=== PATIENT | female | born 1990 | race Caucasian/White ===

== ENCOUNTER 2020-10-31 20:35 | Emergency (ER) | payer OTHER, BC, SELFPAY ==
[2020-10-31 20:36] VITALS: BP 158/102; PULSE 98; RESP 15; TEMP 36.3; O2SAT 98; BMI 51.5
--- NOTE | 2020-10-31 22:40 | CT_ITS ---
STUDY: CT BRAIN WITHOUT CONTRAST REASON FOR EXAM: Female, 30 years old. Injury/Pain RADIATION DOSAGE (If Supplied By Facility): CTDIvol = ( 44.99 ) mGy, DLP = ( 745.49 ) mGycm TECHNIQUE: Transaxial CT imaging of the brain was performed without administration of intravenous contrast material. Individualized dose optimization techniques were used for this CT. COMPARISON: No relevant priors. FINDINGS: Left frontal scalp hematoma Normal calvarium. Normal size ventricles and extra-axial spaces for the patient''s age. Normal white matter tracts of the cerebral hemispheres. Normal basal ganglia and thalami. Normal brainstem. Normal cerebellum. There is no intracranial hemorrhage. There are no findings of an acute ischemic infarction. Normal visualized paranasal sinuses. CT/Brain/Head without Contrast IMPRESSION: No acute intracranial pathology. Scalp hematoma Electronically Signed: Abdirizak Potts DO at 23:01 EDT Tel , Service support ,
--- NOTE | 2020-10-31 22:45 | RAD_ITS ---
STUDY: X-RAY - LEFT FEMUR REASON FOR STUDY: Female, 30 years old. fall TECHNIQUE: 4 view(s) of the femur. COMPARISON: None. FINDINGS: Normal visualized femur. Normal visualized soft tissue structure. Femoral pin is noted RAD/Femur Min 2 Views IMPRESSION: Normal x-ray examination of the femur. Electronically Signed: Abdirizak Potts DO at 23:19 EDT Tel , Service support ,
--- NOTE | 2020-10-31 22:45 | RAD_ITS ---
STUDY: X-RAY - LEFT ELBOW REASON FOR EXAM: Female, 30 years old. Injury/Pain TECHNIQUE: 3 view(s) of the elbow. COMPARISON: None. FINDINGS: Normal visualized humerus, radius and ulna. Normal radiocapitellar and ulnotrochlear articulations. The soft tissue structures are unremarkable. RAD/Elbow min 3 Views IMPRESSION: Normal x-ray examination of the elbow. Electronically Signed: Abdirizak Potts DO at 23:18 EDT Tel , Service support ,
[2020-10-31] MEDS: Diphth,Pertuss(Acell),Tet Vac 0.5 ML Vial IM (23:25)
--- NOTE | 2020-11-01 01:29 | EDS_ITS ---
HPI HPI - Fall History of Present Illness Chief Complaint: Fall Informant: patient Occured/Mechanism Occurred: Today Mechanism/Context: Yes same level fall and Yes trip Usually ambulates: Without assistance Pain/Injury Location: Left elbow, head Pain Location: head and upper extremity Quality of Pain: Sharp, Aching and Throbbing Worsened by: Movement Relieved by: Rest Associated Symptoms Associated Symptoms: Negative for Parasthesias, Weakness, Inability to ambulate and Loss of consciousness Narrative Narrative: Patient presents after a fall that occurred today. Patient states she was walking across a hiking bridge when she tripped and fell. Patient states she landed on her left side. Patient states she did hit her head but denies any loss of consciousness. Patient states her pain is worse over her left elbow. Patient denies any visual changes. Patient states her pain is sharp, aching, and throbbing. Patient states the pain is worse with movement of her left elbow. Patient denies any paresthesias or weakness. Patient states her last tetanus was approximately 10 years ago. Patient states that she fell onto a board that possibly had a nail sticking out of it. Patient did notice a puncture wound over her left elbow. Patient is unsure if there are any foreign bodies in her elbow. Tetanus Immunization: >10 years [facility] Medical History (Updated 11/01/20 @ 01:[address] Reg Calvillo DO) Gastric ulcer Lumbar disc disease Home Medications cephalexin 500 mg PO Q6 #40 capsule 10/31/20 [Rx Last Taken Unknown] duloxetine 60 mg PO DAILY 10/31/20 [History Last Taken Unknown] gabapentin 300 mg PO DAILY 10/31/20 [History Last Taken Unknown] Allergy/AdvReac Type Severity Reaction Status Date / Time Latex, Natural Rubber Allergy Rash Verified 10/31/20 20:38 Surgical History (Updated 11/01/20 @ 01:[address] Reg Calvillo DO) History of appendectomy History of cholecystectomy Social History Smoking Status: Never smoker ROS ROS ED Constitutional Constitutional ED: Denies chills or fever(s) Eyes Eyes: Denies blurry vision or change in vision ENT ENT ED: Denies rhinorrhea or sore throat Cardiovascular Cardiovascular: Denies chest pain or palpitations Respiratory/Chest Respiratory/Chest: Denies cough or dyspnea Gastrointestinal Gastrointestinal: Denies nausea or vomiting Genitourinary Genitourinary ED: Denies dysuria or hematuria Musculoskeletal Musculoskeletal: Denies back pain or neck pain Integumentary Denies abscess or rash Neurologic Neurologic: Reports headache(s); Denies weakness Allergic/Immunologic Allergic/Immunologic ED: Denies mouth swelling or urticaria EXAM Physical Exam Const Vital Signs: 10/31/20 20:36 10/31/20 21:57 Temperature 97.3 F L Temperature Source Temporal Pulse Rate 98 Respiratory Rate 15 Respiratory Effort Normal Non-Labored Respiratory Depth Normal Respiratory Pattern Normal Blood Pressure 158/102 H Blood Pressure Mean 120 Pulse Ox 98 Oxygen Delivery Method Room Air Room Air Positive well nourished, well developed and obese General Appearance ED: well developed Nutritional Appearance: obese HEENT Reports normocephalic HEENT Narrative: There is tenderness and hematoma over the left supraorbital area. There is no bony crepitance or step-off. hematoma and tenderness Eyes PERRL and EOMs intact bilaterally Neck full ROM and no lymphadenopathy Resp normal respiratory effort and clear to auscultation bilaterally Cardio regular rate and regular rhythm GI non-tender and non-distended Auscultation: normoactive bowel sounds Palpation: soft Extremity Left Upper Extremity: elbow joint inspection (There is a puncture wound over the extensor surface of the left elbow. There is no active bleeding.), palpation (There is tenderness palpation diffusely over the left elbow.), ROM (Range of motion of the left elbow was limited in complete extension and complete flexion secondary to pain.) and neurovascular exam (Radial pulses are equal bilaterally. Sensation was intact to light touch in all digits. Capillary refill was less than 2 seconds in all digits.) Left Lower Extremity: upper leg Positive for palpation (There is some tenderness to palpation over the left thigh. There is no deformity.) and neurovascular exam (Neurovascular exam is intact in the lower extremities bilaterally.) Neuro oriented x3, CN's II-XII intact bilaterally, moves all extremities, no focal motor deficits and no sensory deficits noted Sensorium / Orientation: alert Psych mental status grossly normal MDM MDM MDM Narrative Medical decision making narrative: CT scan of the brain was obtained. There is no acute intracranial abnormality. There is a soft tissue hematoma noted of the left frontal area. This was interpreted by the radiologist and reviewed by myself. X-rays of the left elbow were obtained. There are 3 views. On my interpretation, there is no acute fracture. There is no dislocation. There is no soft tissue swelling. Radiologist also interpreted the x-rays and agrees. X-rays of the left femur were obtained. There are 4 views. On my interpretation, there is no acute fracture. There is no dislocation. There is no soft tissue swelling. Radiologist also interpreted the x-rays and agrees. Patient was given a tetanus booster. Patient was given bacitracin dressing to her left elbow. Patient was instructed to ice and elevate the elbow and thigh. Patient was also instructed to apply ice to her left frontal area. Patient was instructed to take Tylenol as needed for pain. Patient states she is unable to take NSAIDs due to her gastric ulcer. Patient was instructed [facility]. Patient was also given work restrictions. Patient understood and was agreeable with the plan. All questions were answered. Radiography Diagnostic Testing: Radiology Impression Brain CT 10/31/20 22:40 IMPRESSION: No acute intracranial pathology. Scalp hematoma Electronically Signed: Abdirizak Potts DO at 23:01 EDT Tel , Service support , Elbow X-Ray 10/31/20 22:45 IMPRESSION: Normal x-ray examination of the elbow. Electronically Signed: Abdirizak Potts DO at 23:18 EDT Tel , Service support , Femur X-Ray 10/31/20 22:45 IMPRESSION: Normal x-ray examination of the femur. Electronically Signed: Abdirizak Potts DO at 23:19 EDT Tel , Service support , Discharge Plan Triage Chief Complaint: Fall ED Provider: Reg Calvillo Dx/Rx/DC Orders Clinical Impression: Closed head injury, Contusion of left elbow, initial encounter, Puncture wound of left elbow, Contusion of left thigh, initial encounter Instructions: ED Contusion, Elbow, ED Head Injury (Adult), ED Puncture Wound (General) Prescriptions: New cephalexin [cephalexin] 500 MG capsule 500 mg PO Q6 Qty: 40 RF: 0 No Action gabapentin 300 mg Tablet 300 mg PO DAILY RF: 0 duloxetine 60 mg Capsule, Delayed Rel Sprinkle 60 mg PO DAILY RF: 0 Stand Alone Forms: Work Status Form Primary Care Provider: Care Physician,No Primary Referrals: Corporate,Care [GROUP OF PHYSICIANS] - 3-5 Days Care Physician,No Primary [Primary Care Provider] - Disposition Disposition: Home, self care Discharge Date/Time: 11/01/20 00:09
== END 2020-11-01 00:09 | disposition home or self-care (01) ==
PROVIDERS: Emergency Provider Emergency Medicine
DX: S09.90XA Unspecified injury of head, initial encounter (principal); S50.02XA Contusion of left elbow, initial encounter; S51.032A Puncture wound without foreign body of left elbow, initial encounter; S70.12XA Contusion of left thigh, initial encounter; E66.9 Obesity, unspecified; W01.0XXA Fall on same level from slipping, tripping and stumbling without subsequent striking against object, initial encounter; Y93.01 Activity, walking, marching and hiking; Z79.899 Other long term (current) drug therapy
CPT/HCPCS: 70450; 73080; 73552; 90715; 96372; 99282

== ENCOUNTER 2022-08-08 14:21 | Emergency (ER) | payer OTHER, BC, SELFPAY ==
[2022-08-08 14:22] VITALS: BP 141/92; PULSE 110; RESP 18; TEMP 36.6; O2SAT 95
--- NOTE | 2022-08-08 14:35 | RAD_ITS ---
EXAM: XR LEFT TIBIA AND FIBULA, 2 VIEWS CLINICAL INDICATION: leg pain TECHNIQUE: Frontal and lateral views of the left tibia and fibula. This report was created using [employer] report generation technology. COMPARISON: 10.31.20 FINDINGS: BONES/JOINTS: Nondisplaced fracture of the proximal fibula. Preservation of the joint space. No sclerotic or destructive changes observed. SOFT TISSUES: Unremarkable. No soft tissue swelling or gas. No radiopaque foreign body. RAD/Tibia & Fibula 2 Views IMPRESSION: Nondisplaced fracture of the proximal fibula. Electronically Signed: Rudy Khalil MD at 15:30 EST ,
--- NOTE | 2022-08-08 14:37 | ED.VIS.LOWEX ---
HPI <EMRE Blanca - Last Filed: 08/08/22 15:13> History of Present Illness Chief Complaint: Lower Extremity Injury Narrative Narrative: 32-year-old female was stretching when she felt a pop and pain in her left lateral calf. 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 There was no fall or direct trauma. She was able to ambulate and went to urgent care but their x-ray machine was down. She was given crutches and told to come here. She has not been more pain with ambulation now. No weakness numbness or tingling. PFSH <EMRE Blanca - Last Filed: 08/08/22 15:13> [facility] Medical History Gastric ulcer Lumbar disc disease Home Medications duloxetine 60 mg capsule,delayed release sprinkle 60 mg PO DAILY 10/31/20 [History Last Taken Unknown] gabapentin 300 mg tablet 300 mg PO DAILY 10/31/20 [History Last Taken Unknown] naproxen 500 mg tablet 500 mg PO BID #14 tabs 08/08/22 [Rx Last Taken Unknown] Allergy/AdvReac Type Severity Reaction Status Date / Time Latex, Natural Rubber Allergy Rash Verified 08/08/22 14:22 Surgical History History of appendectomy History of cholecystectomy Social History Smoking Status: Never smoker ROS <EMRE Blanca - Last Filed: 08/08/22 15:13> ROS ED ROS Narrative Constitutional: Negative for fever, chills, malaise. Neuro: Negative for motor/sensory dysfunction. Skin: Negative for rash, abscess, or wound. Musc: Positive for left leg pain. Heme: Negative for easy bruising, bleeding, lymphadenopathy. EXAM <EMRE Blanca - Last Filed: 08/08/22 15:13> Physical Exam Narrative Exam Narrative: CONST: Patient sitting in no acute distress. EYES: Normal inspection. NECK: Normal inspection. RESP: No respiratory distress, CTAB. CVS: Regular rate and rhythm, no murmur, no gallop. SKIN: Color normal, no rash, warm, dry, intact. EXTREMITIES: Normal appearance of obese lower extremities, no signs of gross trauma or deformity. Palpation over left medial lateral calf and proximal fibula, no other bony tenderness of hip knee lower leg or foot. Full ROM, normal sensation, 2+ DP pulse. NEURO: Oriented x4. PSYCH: Normal affect. Const Vital Signs: 08/08/22 14:22 Temperature 98 F Temperature Source Temporal Pulse Rate 110 H Respiratory Rate 18 Blood Pressure 141/92 H Blood Pressure Mean 108 Pulse Ox 95 Oxygen Delivery Method Room Air <Dr. Tico Correa MD - Last Filed: 08/08/22 15:05> Physical Exam Const Vital Signs: 08/08/22 14:22 Temperature 98 F Temperature Source Temporal Pulse Rate 110 H Respiratory Rate 18 Blood Pressure 141/92 H Blood Pressure Mean 108 Pulse Ox 95 Oxygen Delivery Method Room Air MDM <EMRE Blanca - Last Filed: 08/08/22 15:13> [facility] Narrative Medical decision making narrative: 32-year-old female stretching developed left lower leg pain. She has had difficulty ambulating. She was seen in urgent care and given crutches and sent here. On exam legs appear normal with no evidence of trauma. She is tender over the proximal fibula, neurovascularly intact. X-rays show a nondisplaced proximal fibula fracture. She was advised to continue crutches, prescribed naproxen, and given orthopedic follow-up. She was discharged in stable condition. Pharyngeal: Muscle strain, fibular fracture, calf tear I have personally performed a face to face assessment of the patient and have reviewed the [place] Note. I performed a substantive portion of the visit including all aspects of the following. My chahal findings include: History is [32-year-old female with stretching felt a pop and discomfort in her proximal left lower leg. No prior history or surgery to the tib-fib. 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 She denies any other falls or other trauma.] Exam is [32-year-old female vital signs are stable afebrile. H EENT exam unremarkable. Neck nontender. Lungs clear. Heart regular rhythm. Chest wall nontender. Abdomen soft, nontender. Moving all 4 extremities. Neurovascular intact. She has tenderness along the lateral proximal third of her left tib-fib. On the fibular side. There is no gross bony deformity. She has normal flexion-extension of the left hip, left knee ankle foot. Normal dorsi plantarflexion. Normal DP pulse. Normal sensation. Normal strength. No gross bony deformities. No edema.] Medical Decision Making [32-year-old stretching and left lower leg pain. X-ray being obtained.] Other additions or changes: [None] <Dr. Tico Correa MD - Last Filed: 08/08/22 15:05> [facility] MDM Narrative Medical decision making narrative: I have personally performed a face to face assessment of the patient and have reviewed the [place] Note. I performed a substantive portion of the visit including all aspects of the following. My chahal findings include: History is [32-year-old female with stretching felt a pop and discomfort in her proximal left lower leg. No prior history or surgery to the tib-fib. 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 She denies any other falls or other trauma.] Exam is [32-year-old female vital signs are stable afebrile. H EENT exam unremarkable. Neck nontender. Lungs clear. Heart regular rhythm. Chest wall nontender. Abdomen soft, nontender. Moving all 4 extremities. Neurovascular intact. She has tenderness along the lateral proximal third of her left tib-fib. On the fibular side. There is no gross bony deformity. She has normal flexion-extension of the left hip, left knee ankle foot. Normal dorsi plantarflexion. Normal DP pulse. Normal sensation. Normal strength. No gross bony deformities. No edema.] Medical Decision Making [32-year-old stretching and left lower leg pain. X-ray being obtained.] Other additions or changes: [None] Discharge Plan Triage Chief Complaint: Lower Extremity Injury ED Midlevel Provider: Jenae Sandoval ED Provider: Tico Correa Dx/Rx/DC Orders Clinical Impression: Acute pain of left lower extremity, Closed fracture of fibula, proximal, left Instructions: ED Fracture, Lower Extremity Prescriptions: New naproxen 500 mg tablet 500 mg PO BID Qty: 14 0RF No Action gabapentin 300 mg Tablet 300 mg PO DAILY duloxetine 60 mg Capsule, Delayed Rel Sprinkle 60 mg PO DAILY Primary Care Provider: Smith Mckinnon PROGRAM WRITER Referrals: Sidney Medina DO [Med Staff - Active Staff] - Care Physician,No Primary [Non-Staff] - Activity Restrictions/Additional Instructions: You fractured your fibula which is the bone that runs along the outside of your lower leg. Use the crutches and do not bear weight. You can ice the area and take naproxen as needed for pain. If you need additional pain control by Tylenol and take 1000 mg every 6 hours. Call the orthopedic doctor for a follow-up appointment. Disposition Disposition: Home, Self Care
[2022-08-08] MEDS: Ketorolac 30 MG/ML Syringe IM (14:49)
[2022-08-08 15:13] VITALS: BP 126/78; PULSE 78; RESP 16; TEMP 36.6; O2SAT 99; BMI 59.1
== END 2022-08-08 15:24 | disposition home or self-care (01) ==
PROVIDERS: Emergency Provider Emergency Medicine; PCP Nurse Practitioner Family; Visit Provider Emergency Medicine
DX: S82.832A Other fracture of upper and lower end of left fibula, initial encounter for closed fracture (principal); M79.605 Pain in left leg; X58.XXXA Exposure to other specified factors, initial encounter
CPT/HCPCS: 73590; 96372; 99282

== ENCOUNTER 2024-05-10 08:45 | Emergency (ER) | payer OTHER, SELFPAY ==
[2024-05-10 08:46] VITALS: BP 144/95; PULSE 87; RESP 18; TEMP 36.4; O2SAT 100
[2024-05-10 09:04] VITALS: BMI 60.7
[2024-05-10 09:05] VITALS: O2SAT 98
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
[2024-05-10] MEDS: HYDROcodone Bitartrate/Apap 5/325 Tablet PO (09:09)
[2024-05-10] MEDS: Naproxen 500 MG Tablet PO (09:09)
== END 2024-05-10 10:13 | disposition home or self-care (01) ==
PROVIDERS: Emergency Provider Emergency Medicine; PCP Nurse Practitioner Family; Visit Provider Emergency Medicine
DX: S06.0X0A Concussion without loss of consciousness, initial encounter (principal); V43.52XA Car driver injured in collision with other type car in traffic accident, initial encounter; M51.86 Other intervertebral disc disorders, lumbar region; R03.0 Elevated blood-pressure reading, without diagnosis of hypertension
CPT/HCPCS: 99283

== ENCOUNTER 2024-08-23 18:49 | Emergency (ER) | payer OTHER, SELFPAY ==
[2024-08-23 18:50] VITALS: BP 157/116; PULSE 95; RESP 16; TEMP 36.7; O2SAT 100; BMI 59.9
[2024-08-23 19:04] VITALS: O2SAT 99
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
[2024-08-23] MEDS: Ibuprofen 600 MG Tablet PO (20:23)
== END 2024-08-23 20:26 | disposition home or self-care (01) ==
PROVIDERS: Emergency Provider Emergency Medicine; PCP Nurse Practitioner Family; Visit Provider Emergency Medicine
DX: S16.1XXA Strain of muscle, fascia and tendon at neck level, initial encounter (principal); V43.62XA Car passenger injured in collision with other type car in traffic accident, initial encounter
CPT/HCPCS: 99282